=== PATIENT | male | born 1960 | race Caucasian/White ===

== ENCOUNTER 2017-05-03 10:10 | Emergency (ER) | payer BC ==
[~2017-05-03] VITALS: Ht 182.9 cm; Wt 119.2 kg
[~2017-05-03 10:10] MED LIST: ASPI-428 PO; BNC/4025 PO; GLC/500 PO; METO-478 PO; PRAV20TA2 PO; RIVA1TAB4 PO; SERT1TAB71 PO
[2017-05-03 10:13] VITALS: TEMP 36.7; Ht 182.9 cm; Wt 119.2 kg
--- NOTE | 2017-05-03 10:24 | EMERGENCY ROOM VISIT NOTE ---
History Report prepared by Vega: Edmund Mckeon Under the Supervision of: Dr. Rell Chand M.D. First contact with patient: 10:17 Chief Complaint: ARM PAIN Stated Complaint: RIGHT ARM PAIN/INJURY History of Present Illness The patient is a 57 year old male who presents to the Emergency Room with complaints of a sudden right arm and shoulder injury that occurred 5 days ago. [place] a stick with his right foot, causing him to fall outstretched onto his left arm and shoulder. He states that he has had right shoulder and arm pain ever since then, and during the last couple days, he notes that his biceps have been intermittently cramping. Per the patient's , the patient was seen at [facility] and had an x-ray there. The patient was told that they could not do an MRI there , and they recommended that the patient get an MRI in order to see exactly what is going on. The patient says that he was told that it could be badly bruised, or it could be a rotator cuff injury. He says that he has been taking Percocet every 4 hours as needed. The patient states that he cannot take Ibuprofen because he is on a blood thinner. He says that he is unable to be seen by orthopedics until the end of this month. Source of History: patient, spouse/significant other Onset: 5 days ago Position: shoulder (right), arm (right) Symptom Intensity: fell outstretched onto arm Quality: other (ever since fall) Timing: other (sudden) Note: Associated symptoms: Intermittent right biceps cramping. Review of Systems All systems have been listed, reviewed, and are negative other than those previously mentioned. Please see Additional Medical History Sheet. Past Medical & Surgical Medical Problems: (1) Atrial fibrillation (2) Diabetes (3) Hypertension Nos Surgical Problems: (1) Carpal tunnel syndrome (2) Knee Joint Replacement Status (3) S/P ablation of atrial fibrillation Family History FH: cancer FH: diabetes mellitus FH: heart disease FH: hypertension FH: kidney disease FH: lung disease FH: seizures Social History Smoking Status: Never Smoker Alcohol Use: none Marital Status: Housing Status: lives with family Occupation Status: unemployed Current/Historical Medications Scheduled Aspirin (Ecotrin Low Strength), 81 MG PO DAILY Metformin Hcl (Glucophage), 500 MG PO BID Metoprolol Succinate (Toprol Xl), 25 MG PO DAILY Olmesartan/Hctz (Benicar Hct 40/25), 1 TAB PO DAILY Pravastatin Sodium (Pravachol), 20 MG PO Q2D Rivaroxaban (Xarelto), 20 MG PO QPM Sertraline Hcl (Zoloft), 50 MG PO DAILY Scheduled PRN Oxycodone/Acetaminophen 5MG/325MG (Percocet 5MG/325MG), 2 TABLETS PO Q4H PRN for Pain Allergies Coded Allergies: Morphine (Verified Adverse Reaction, Mild, NAUSEA AND DIZZINESS, 05/03/17) Lisinopril (Verified Adverse Reaction, Unknown, COUGH, 05/03/17) Physical Exam Vital Signs Date Time Temp Pulse Resp B/P (MAP) Pulse Ox O2 Delivery O2 Flow Rate FiO2 05/03/17 13:36 73 16 95 05/03/17 12:12 75 16 121/70 93 05/03/17 10:13 36.7 68 17 118/76 96 Room Air Physical Exam GENERAL: Patient awake, alert, oriented x 3. Patient follows commands. Patient does not appear toxic. Patient is adequately hydrated and well- nourished. SKIN: No erythema, pallor, cyanosis or rash HEENT: Normal head, pupils equal, reactive to light and accommodation. LUNGS: Clear to auscultation. No wheezes, no rales, no rhonchi. HEART: No murmurs. No gallops. No rubs ABDOMEN: Soft, nontender. EXTREMITIES: Full range of motion of left arm. Right arm has limited flexion, extension and abduction. Sensory and circulatory distally intact to right hand. Motor limited due to pain in shoulder. No pedal or pretibial edema. No calf or thigh tenderness. NEUROLOGIC: Cranial nerves II-XII within normal limits. No gross motor sensory function deficits. Medical Decision & Procedures ER Provider Diagnostic Interpretation: MRI results are interpretations by the radiologist and per my review. R UPPER EXT JOINT WITHOUT CLINICAL HISTORY: 57 years-old Male with rotator cuff injury. Acute right shoulder pain and swelling status post fall COMPARISON: None. TECHNIQUE: Multiplanar, multi sequence MRI of the right shoulder was performed without intravenous contrast. FINDINGS: Large [id number] health safety specialist images demonstrate no gross abnormality. ROTATOR CUFF: There is an irregular acute high-grade intrasubstance tear of the anterior supraspinatus tendon, 10 x 13 mm in transverse and AP dimension respectively nicely seen on image 7 series 8 and image 7 series 6. The tear extends into the articular and bursal fibers. Moderate to severe associated supraspinatus tendinosis. No full-thickness supraspinatus tear or retraction identified. There is mild intramuscular edema of the supraspinatus, likely reactive. High-grade partial-thickness tear involves the articular sided fibers involving the conjoined supraspinatus and infraspinatus tendon measuring 5 mm in AP dimension, not well imaged on the coronal images. Mild infraspinatus tendinosis with otherwise intact tendon. The subscapularis and teres minor tendons appear intact. BICEPS TENDON: The long-head biceps tendon is intact. No evidence of tendinosis. The biceps nabeel and anchor are intact. LABRUM: There is irregularity and increased signal involving the superior labrum extending anterior to posterior compatible with SLAP tear nicely seen on image 10 series 6. No displaced fragment or paralabral cyst identified. Additionally, there is mild irregularity of the inferior quadrants of the labrum. GLENOHUMERAL JOINT: Mild degenerative changes with small joint effusion. No intra-articular loose body identified. ACROMIOCLAVICULAR JOINT: Mild to moderate degenerative changes with marginal spurring and capsular hypertrophy. No evidence of os acromiale. Mild amount of subacromial/subdeltoid bursitis. OUTLET SPACES: The suprascapular notch and quadrilateral space are without obstructing or space occupying lesions. BONE MARROW: No focal abnormality, fracture or marrow occupying lesion. Mild subcortical cystic changes of the humeral head at the rotator cuff foot plate. SOFT TISSUES: There is moderate soft tissue swelling with subcutaneous and intramuscular edema involving the shoulder and deltoid. IMPRESSION: 1. Irregular acute high-grade intrasubstance tear of the anterior supraspinatus tendon measuring up to 13 mm with extension into both the articular and bursal fibers. No full thickness tear or retraction identified. 2. High-grade partial-thickness tear involves the articular fibers of the conjoined supraspinatus and infraspinatus tendon. 3. SLAP tear with additional irregularity of the inferior labrum. 4. Moderate amount of soft tissue edema about the shoulder as above, likely posttraumatic. 5. No acute fracture identified. 6. Mild glenohumeral degenerative changes with small joint effusion. Mild subacromial/subdeltoid bursitis. The above report was generated using voice recognition software. It may contain grammatical, syntax or spelling errors. . Electronically signed by: Mykel Gannon M.D. 05/03/2017 12:03 PM Dictated Date/Time: 05/03/2017 11:36 AM ED Course 1018: Past medical records reviewed. The patient was evaluated in room A12B. A complete history and physical examination was performed. 1319: Upon reevaluation, the patient appeared to be resting comfortably, and wants a new sling. I discussed today's findings with him. He verbalized agreement of the treatment plan. He was discharged home. Medical Decision Nurses notes reviewed. Medical history sheet reviewed. Differential diagnosis includes but is not limited to: fracture, dislocation, subluxation, AC separation, rotator cuff injury, bursitis, arthritis. History physical examination and MRI results are all consistent with a rotator cuff tear. The patient was placed in a sling was encouraged to follow-up with orthopedics as soon as possible for possible surgery. The patient has pain medication at home. Medication Reconcilliation Current Medication List: was personally reviewed by me Blood Pressure Screening Patient's blood pressure: Normal blood pressure Impression Primary Impression: Rotator cuff tear Scribe Attestation The scribe's documentation has been prepared under my direction and personally reviewed by me in its entirety. I confirm that the note above accurately reflects all work, treatment, procedures, and medical decision making performed by me. Departure Information Dispostion Home / Self-Care Referrals Natalee Yoder M.D. (PCP) Patient Instructions My [facility] Additional Instructions [facility] with [facility] as possible. Wear the sling at all times while you are up. Pain medications as needed for severe pain. Do not drive or operate machinery while taking Percocet.
[2017-05-03] MEDS ORDERED: OXYC-57 PO (10:29)
--- NOTE | 2017-05-03 12:05 | DIAGNOSTIC IMAGING REPORT ---
R UPPER EXT JOINT WITHOUT CLINICAL HISTORY: 57 years-old Male with rotator cuff injury. Acute right shoulder pain and swelling status post fall COMPARISON: None. TECHNIQUE: Multiplanar, multi sequence MRI of the right shoulder was performed without intravenous contrast. FINDINGS: Large [id number] manual lathe machinist images demonstrate no gross abnormality. ROTATOR CUFF: There is an irregular acute high-grade intrasubstance tear of the anterior supraspinatus tendon, 10 x 13 mm in transverse and AP dimension respectively nicely seen on image 7 series 8 and image 7 series 6. The tear extends into the articular and bursal fibers. Moderate to severe associated supraspinatus tendinosis. No full-thickness supraspinatus tear or retraction identified. There is mild intramuscular edema of the supraspinatus, likely reactive. High-grade partial-thickness tear involves the articular sided fibers involving the conjoined supraspinatus and infraspinatus tendon measuring 5 mm in AP dimension, not well imaged on the coronal images. Mild infraspinatus tendinosis with otherwise intact tendon. The subscapularis and teres minor tendons appear intact. BICEPS TENDON: The long-head biceps tendon is intact. No evidence of tendinosis. The biceps nabeel and anchor are intact. LABRUM: There is irregularity and increased signal involving the superior labrum extending anterior to posterior compatible with SLAP tear nicely seen on image 10 series 6. No displaced fragment or paralabral cyst identified. Additionally, there is mild irregularity of the inferior quadrants of the labrum. GLENOHUMERAL JOINT: Mild degenerative changes with small joint effusion. No intra-articular loose body identified. ACROMIOCLAVICULAR JOINT: Mild to moderate degenerative changes with marginal spurring and capsular hypertrophy. No evidence of os acromiale. Mild amount of subacromial/subdeltoid bursitis. OUTLET SPACES: The suprascapular notch and quadrilateral space are without obstructing or space occupying lesions. BONE MARROW: No focal abnormality, fracture or marrow occupying lesion. Mild subcortical cystic changes of the humeral head at the rotator cuff foot plate. SOFT TISSUES: There is moderate soft tissue swelling with subcutaneous and intramuscular edema involving the shoulder and deltoid. IMPRESSION: 1. Irregular acute high-grade intrasubstance tear of the anterior supraspinatus tendon measuring up to 13 mm with extension into both the articular and bursal fibers. No full thickness tear or retraction identified. 2. High-grade partial-thickness tear involves the articular fibers of the conjoined supraspinatus and infraspinatus tendon. 3. SLAP tear with additional irregularity of the inferior labrum. 4. Moderate amount of soft tissue edema about the shoulder as above, likely posttraumatic. 5. No acute fracture identified. 6. Mild glenohumeral degenerative changes with small joint effusion. Mild subacromial/subdeltoid bursitis. The above report was generated using voice recognition software. It may contain grammatical, syntax or spelling errors. . Electronically signed by: Mykel Gannon M.D. 05/03/2017 12:03 PM Dictated Date/Time: 05/03/2017 11:36 AM
[2017-05-03 12:12] VITALS: BP 121/70
[2017-05-03 13:36] VITALS: PULSE 73; O2SAT 95
== END 2017-05-03 13:36 | disposition home or self-care (01) ==
LOC: C.EDB 10:12 → C.EDA 13:36
DX: S46.011A Strain of muscle(s) and tendon(s) of the rotator cuff of right shoulder, initial encounter (principal); W01.0XXA Fall on same level from slipping, tripping and stumbling without subsequent striking against object, initial encounter; I10 Essential (primary) hypertension; I48.91 Unspecified atrial fibrillation; E11.9 Type 2 diabetes mellitus without complications; Z96.659 Presence of unspecified artificial knee joint; Z98.890 Other specified postprocedural states; Z79.82 Long term (current) use of aspirin; Z79.84 Long term (current) use of oral hypoglycemic drugs; Z79.899 Other long term (current) drug therapy; Z88.5 Allergy status to narcotic agent; Z88.8 Allergy status to other drugs, medicaments and biological substances; Z80.9 Family history of malignant neoplasm, unspecified; Z83.3 Family history of diabetes mellitus; Z82.49 Family history of ischemic heart disease and other diseases of the circulatory system; Z84.1 Family history of disorders of kidney and ureter; Z82.0 Family history of epilepsy and other diseases of the nervous system